=== PATIENT | female | born 1980 | race Two or more races ===

== ENCOUNTER 2018-11-29 21:36 | Inpatient (IN) | payer OTHER ==
[~2018-11-29] VITALS: Ht 170.2 cm; Wt 88.5 kg
[~2018-11-29 21:36] MED LIST: HYDR-2761 PO
[2018-11-29 22:02] LABS: BILIRUBIN,URINE NEGATIVE (NEG); CLARITY,URINE CLEAR; COLOR,URINE YELLOW; NITRITE,URINE NEGATIVE (NEG); PH,URINE 6.5; PROTEIN,URINE NEGATIVE (NEG-TRACE)
[2018-11-29 22:07] LABS: SQUAMOUS EPITHELIAL CELL,UR MOD /LPF
[2018-11-29 22:09] LABS: BACTERIA,URINE FEW /HPF (0-FEW); RBC,URINE TNTC /HPF (0-2)
--- NOTE | 2018-11-29 22:37 | PHYS DOC ---
Past Medical History Past Medical History: No Pertinent History Past Surgical History: No Surgical History Alcohol Use: None Drug Use: None Adult General Chief Complaint Chief Complaint: VAGINAL BLEEDING HPI HPI 38 y/o female presents to ER via POV for complaints of lower abdominal pain and vaginal bleeding. She reports pain is cramping in nature and symptoms started around 2:58 PM today. She reports she is approximately 16 weeks LMP June 2018 and she is uncertain as to how far along she is. She reports she went to [facility] 3 months ago and had a positive UCG test. She denies any further OB evaluation or care. She reports she is taking vitamins daily. 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 She denies any recent sexual intercourse. She denies recent falls/injury. She reports she has been having vaginal pressure denies passing clots or tissue. She reports bleeding has been light denies soaking through peripads. She denies nausea or vomiting, fever, or flulike illness. She reports she has had some dysuria past couple of days. She denies suicidal ideations reports she does have good support with her family. She reports the father for this and her are not together. She states she is 3 para 2 with this and has an 11 and 7-year-old daughters at home. Review of Systems Review of Systems Constitutional: Denies fever or chills [] Respiratory: Denies cough or shortness of breath [] Cardiovascular: No additional information not addressed in HPI [] GI: Denies nausea, vomiting, bloody stools or diarrhea. Reports lower abd pain : Reports dysuria and vaginal bleeding Musculoskeletal: Denies back pain Integument: Denies rash or skin lesions [] Neurologic: Denies headache, focal weakness or sensory changes. Denies dizziness Psych: Reports anxiety w/onset of sxs- denies SI All other systems were reviewed and found to be within normal limits, except as documented in this note. Allergies Allergies Allergies Coded Allergies Type Severity Reaction Last Updated Verified No Known Drug Allergies 06/28/16 No Physical Exam Physical Exam Constitutional: Well developed, well nourished, no acute distress, non-toxic appearance. Tearful during exam HENT: Normocephalic, atraumatic, oropharynx moist, no oral exudates, nose normal. [] Eyes: Pupils equal, conjunctiva normal, no discharge. [] Neck: Normal range of motion, no tenderness, supple, no stridor. [] Cardiovascular: Heart rate regular rhythm, no murmur [] Lungs & Thorax: Bilateral breath sounds clear to auscultation. Resp. equal/ nonlabored Abdomen: Bowel sounds normal, soft- diffuse tenderness across lower abd- no distention/rigidity, no masses, no pulsatile masses. [] Skin: Warm, dry, no erythema, no rash. [] Back: No tenderness, no CVA tenderness. [] Extremities: No tenderness, no cyanosis, no clubbing, ROM intact, no edema. [] Neurologic: Alert and oriented X 3, normal motor function, normal sensory function, no focal deficits noted. [] Psychologic: Affect normal, judgement normal, mood normal. [] Current Patient Data Vital Signs Vital Signs Date Time Temp Pulse Resp B/P (MAP) Pulse Ox O2 Delivery O2 Flow Rate FiO2 11/29/18 23:20 102 16 122/81 (95) 97 Room Air 11/29/18 22:00 98.9 98.9 Lab Values Laboratory Tests Test 11/29/18 21:41 11/29/18 21:51 11/29/18 23:25 Urine Collection Type Unknown Urine Color Yellow Urine Clarity Clear Urine pH 6.5 Urine Specific Lincoln 1.015 Urine Protein Negative mg/dL (NEG-TRACE) Urine Glucose (UA) Negative mg/dL (NEG) Urine Ketones (Stick) 15 mg/dL (NEG) Urine Blood Large (NEG) Urine Nitrite Negative (NEG) Urine Bilirubin Negative (NEG) Urine Urobilinogen Dipstick 2.0 mg/dL (0.2 mg/dL) Urine Leukocyte Esterase Moderate (NEG) Urine RBC Tntc /HPF (0-2) Urine WBC 5-10 /HPF (0-4) Urine Squamous Epithelial Cells Mod /LPF Urine Bacteria Few /HPF (0-FEW) Urine Mucus Slight /LPF Urine Opiates Screen Neg (NEG) Urine Methadone Screen Neg (NEG) Urine Barbiturates Neg (NEG) Urine Phencyclidine Screen Neg (NEG) Urine Amphetamine/Methamphetamine Neg (NEG) Urine Benzodiazepines Screen Neg (NEG) Urine Cocaine Screen Neg (NEG) Urine Cannabinoids Screen Neg (NEG) Urine Ethyl Alcohol Neg (NEG) POC Urine HCG, Qualitative Hcg positive (Negative) White Blood Count 9.3 x10^3/uL (4.0-11.0) Red Blood Count 4.74 x10^6/uL (3.50-5.40) Hemoglobin 11.8 g/dL (12.0-15.5) L Hematocrit 36.3 % (36.0-47.0) Mean Corpuscular Volume 77 fL (79-100) L Mean Corpuscular Hemoglobin 25 pg (25-35) Mean Corpuscular Hemoglobin Concent 32 g/dL (31-37) Red Cell Distribution Width 16.9 % (11.5-14.5) H Platelet Count 280 x10^3/uL (140-400) Neutrophils (%) (Auto) 74 % (31-73) H Lymphocytes (%) (Auto) 17 % (24-48) L Monocytes (%) (Auto) 6 % (0-9) Eosinophils (%) (Auto) 2 % (0-3) Basophils (%) (Auto) 1 % (0-3) Neutrophils # (Auto) 6.9 x10^3uL (1.8-7.7) Lymphocytes # (Auto) 1.6 x10^3/uL (1.0-4.8) Monocytes # (Auto) 0.6 x10^3/uL (0.0-1.1) Eosinophils # (Auto) 0.2 x10^3/uL (0.0-0.7) Basophils # (Auto) 0.1 x10^3/uL (0.0-0.2) Maternal Serum HCG Beta Subunit 336 mIU/mL (0-5) H Sodium Level 136 mmol/L (136-145) Potassium Level 3.1 mmol/L (3.5-5.1) L Chloride Level 101 mmol/L (98-107) Carbon Dioxide Level 22 mmol/L (21-32) Anion Gap 13 (6-14) Blood Urea Nitrogen 7 mg/dL (7-20) Creatinine 0.6 mg/dL (0.6-1.0) Estimated GFR (Cockcroft-Gault) 110.7 BUN/Creatinine Ratio 12 (6-20) Glucose Level 98 mg/dL (70-99) Calcium Level 9.0 mg/dL (8.5-10.1) Total Bilirubin 0.3 mg/dL (0.2-1.0) Aspartate Amino Transferase (AST) 19 U/L (15-37) Alanine Aminotransferase (ALT) 23 U/L (14-59) Alkaline Phosphatase 104 U/L (46-116) Total Protein 7.3 g/dL (6.4-8.2) Albumin 3.1 g/dL (3.4-5.0) L Albumin/Globulin Ratio 0.7 (1.0-1.7) L Laboratory Tests 11/29/18 23:25 Laboratory Tests 11/29/18 23:25 EKG EKG [] Radiology/Procedures Radiology/Procedures [] Course & Med Decision Making Course & Med Decision Making Pertinent Labs and Imaging studies reviewed. (See chart for details) RN reported she attempted to obtain heart tones but was unsuccessful. 2335: Pelvic exam complete with RN at bedside- speculum inserted into vaginal vault and when opened visualized what appeared to be amniotic sac without obvious presentation. Sm. amt of bright red vaginal bleeding. With exam there was presentation of fetus/amniotic sac outside vaginal vault when speculum was removed. After exam pt denied abd pain/cramping. She tolerated exam well. She remains tearful during exam- her sister remained at bedside and provided pt with emotional support. Discussed pt's case, US results and exam with Dr. Muñoz who recommended call be placed to OB to discuss pt's case. 2340: Spoke with Dr. Linn, OB pensions retirement plan specialist and discussed patient's case and exam. Per him Will admit patient to his services for further care and monitoring. This was discussed with patient she is agreeable with admitting plan. She remains tearful although having no uncontrollable behavior. Pt's sister has been with pt and providing supportive care. Pt has had intermittent lower abd cramping with bright red vaginal bleeding- no passing of clots/tissue. She was offered pain medication while in the ER but preferred no meds as her pain was tolerable. She was started on IV flds while in the ER. VS have been stable. There was a delay with getting labs- some were still pending at time of admission. Pt's H&H was stable at 11.8/36.3. Her HCG quant was 336. Type and RH pending. Dragon Disclaimer Dragon Disclaimer This electronic medical record was generated, in whole or in part, using a voice recognition dictation system. Departure Departure Impression: Primary Impression: Spontaneous Disposition: ADMITTED INPATIENT Admitting Physician: Other (Dr. Linn) Condition: STABLE Referrals: NO PCP (PCP) LUCHO JOHNSON APRN Nov 29, 2018 22:37
--- NOTE | 2018-11-29 23:42 | RAD ---
INDICATION: spotting today COMPARISON: None. TECHNIQUE: Grayscale and color ultrasound images uterus and adnexa. Transabdominal and transvaginal images obtained. FINDINGS: Intrauterine is identified however no heartbeat is seen. The legs are within the cervix to upper vaginal region. The maternal ovaries are not seen. The ultrasound estimated gestational age is 15 weeks and 0 days. Fluid is seen within the cervical region and vaginal region surrounding the fetus which could be secondary to the gestational sac extending into this region. IMPRESSION: 1. No heartbeat is seen with the legs extending into the cervical and upper vaginal region concerning for in progress. The amniotic sac appears to be extending through the cervix and into the upper vaginal region as well. Electronically signed by: Efren Tirado MD (11/29/2018 11:39 PM) [facility]
[2018-11-29 23:54] LABS: BASO # 0.1 x10^3/uL (0.0-0.2); BASO % 1 % (0-3); EOS # 0.2 x10^3/uL (0.0-0.7); EOS % 2 % (0-3); HEMATOCRIT 36.3 % (36.0-47.0); HEMOGLOBIN 11.8 g/dL (12.0-15.5); LYMPH # 1.6 x10^3/uL (1.0-4.8); LYMPH % 17 % (24-48); MEAN CORPUSCULAR HEMOGLOBIN 25 pg (25-35); MEAN CORPUSCULAR HGB CONC 32 g/dL (31-37); MEAN CORPUSCULAR VOLUME 77 fL (79-100); MONO # 0.6 x10^3/uL (0.0-1.1); MONO % 6 % (0-9); NEUT # 6.9 x10^3uL (1.8-7.7); NEUT % 74 % (31-73); PLATELET COUNT 280 x10^3/uL (140-400); RED BLOOD COUNT 4.74 x10^6/uL (3.50-5.40); RED CELL DISTRIBUTION WIDTH 16.9 % (11.5-14.5); WHITE BLOOD COUNT 9.3 x10^3/uL (4.0-11.0)
[2018-11-30 00:03] LABS: CREATININE 0.6 mg/dL (0.6-1.0); GFR 110.7; POTASSIUM 3.1 mmol/L (3.5-5.1)
[2018-11-30 00:10] LABS: ALBUMIN 3.1 g/dL (3.4-5.0); ALBUMIN/GLOBULIN RATIO 0.7 (1.0-1.7); TOTAL BILIRUBIN 0.3 mg/dL (0.2-1.0); TOTAL PROTEIN 7.3 g/dL (6.4-8.2)
[2018-11-30 00:29] VITALS: BP 135/71
[2018-11-30] MEDS ORDERED: fentaNYL PF VIAL 100 MCG/2 ML VIAL IV PRN ×2 (00:30→00:45)
[2018-11-30] MEDS ORDERED: IV NORMAL SALINE 1000ML BAG 1,000 ML IV SCH (00:30)
[2018-11-30] MEDS ORDERED: ONDANSETRON PF 4 MG/2 ML VIAL. IV PRN ×2 (00:30→00:45)
[2018-11-30] MEDS ORDERED: ZOLPIDEM 5 MG TABLET. PO PRN (00:45)
[2018-11-30] MEDS ORDERED: BUTORPHANOL 2 MG/ML VIAL. IV PRN ×2 (00:45)
[2018-11-30] MEDS ORDERED: IBUPROFEN 400 MG TABLET. PO PRN ×2 (00:45→02:00)
[2018-11-30] MEDS ORDERED: 0.9 % SODIUM CHLORIDE 10 ML DISP.SYRIN. IV PRN ×2 (00:45→02:00)
[2018-11-30] MEDS ORDERED: MAG HYDROX/ALUMINUM HYD/SIMETH 30 ML ORAL.SUSP PO PRN ×2 (00:45→02:00)
[2018-11-30] MEDS ORDERED: OXYTOCIN 30 UNIT/500 ML PREMIX 500 ML IV PRN (00:45)
[2018-11-30] MEDS ORDERED: IV RINGERS,LACTATED 1000ML 1,000 ML IV SCH (01:00)
[2018-11-30 01:06] LABS: BARBITURATES NEG (NEG); BENZODIAZEPINES NEG (NEG); CANNABINOIDS NEG (NEG); COCAINE NEG (NEG); METHADONE NEG (NEG); OPIATES NEG (NEG); PHENCYCLIDINE NEG (NEG)
[2018-11-30] MEDS: ceFAZolin SODIUM 1 GM in IV DEXTROSE 5% 50 ML IV SCH ×2 (01:07→07:44)
[2018-11-30 01:10] LABS: AMPHETAMINE/METHAMPHETAMINE NEG (NEG)
[2018-11-30] MEDS ORDERED: ACETAMINOPHEN 325 MG TABLET. PO PRN (02:00)
[2018-11-30] MEDS ORDERED: MAGNESIUM HYDROXIDE 2,400 MG/30 ML ORAL.SUSP. PO PRN (02:00)
[2018-11-30] MEDS ORDERED: SIMETHICONE 80 MG TAB.CHEW PO PRN (02:00)
[2018-11-30] MEDS ORDERED: diphenhydrAMINE HCL 25 MG CAPSULE PO PRN (02:00)
[2018-11-30] MEDS ORDERED: DOCUSATE SODIUM 100 MG CAPSULE. PO PRN (02:00)
--- NOTE | 2018-11-30 02:35 | NUR ---
the father of fetus getting progressively more agitated as night goes on. FOB very teary and yelling out. states he is very depressed, wants some psychiatric help, definate smell of alcohol coming from his breath. We have had security up to unit twice due to FOB behavior. Fob mood swinging from hysterical tears to very dark threatening looks and demeanor towards patient and nursing staff. He wants to know if fetus is a boy or girl?, if " we (the staff) can tell if fetus was "intentionally killed or it was an accident" " this has happened to me with past women " none of my babies have survived" states he has been having dreams that his baby was dying this week. he wants to take home with him.
--- NOTE | 2018-12-05 09:07 | PATHOLOGY ---
[facility] Accession Number: [id number] . 01 Material submitted: . product of conception - PRODUCTS OF CONCEPTION . 01 Clinical history: . IUFD, SAB. Please see delivery summary. . 02 Diagnosis: Immature placenta of an estimated 15 weeks gestation with attached membranes and umbilical cord and attached segment of decidual tissue, products of conception: - thrombotic vasculopathy. - Subamniotic pigmented macrophages. - Segments of decidual tissue showing focal necrosis, hemorrhage, and acute inflammation. (JPM:ingrid; 12/04/2018) MBR/12/05/2018 . 02 Comment: There is no evidence of an acute chorioamnionitis. There are no infarcts. (JPM:ingrid; 12/04/2018) . 02 Electronically signed: . Ashish Wallace MD, Pathologist NPI- [id number] . 01 Gross description: . Received in formalin labeled "Sauza, Yenni". The container is not labeled with the specimen site. Per the requisition, the specimen site is "products of conception. The specimen is a doewll placenta with attached membranes and umbilical cord. The placental disc measures 8.5 x 8.2 x 2.7 cm. The membranes are transparent and thin with the site of membrane rupture 5.3 cm from the placental margin. The membranes have circum-marginate insertion. The umbilical cord measures 23.2 cm in length, 0.3 cm in diameter and inserts centrally, 2.6 cm from the closest placental margin. There are no true knots in the umbilical cord. The number of umbilical cord vessels cannot be grossly determined. Attached to the placental disc is a 12.0 x 10.5 x 1.5 cm ragged portion of greene-brown decidua. The membranes do not surround the portion of decidua. The total placental weight including attached decidua is 140 grams. The surface is green-richard with minimal subchorionic fibrin and mucinous green fluid is present between the amnion and chorion on the aspect. Amnion nodosum is not present. Cysts are not present. The maternal surface of the main placental disc has grossly intact cotyledons and no basal hemorrhage. The completeness of the attached decidua cannot be determined, and is ragged in nature. Sectioning through the placental disc reveals multiple greene-white possible infarcts comprising 5% of the placental tissue and ranging from 0.6-1.5 cm in greatest dimension. Sections are submitted as follows: . A1 proximal and distal umbilical cord A2 membranes, rolled A3 school admissions representative peripheral placenta A4 school admissions representative central placenta A5-A6 school admissions representative attached decidua ([facility]; 11/30/2018) SYC/SYC . 02 Pathologist provided ICD-10: O43.891 . 02 CPT . 726491 Specimen Comment: A courtesy copy of this report has been sent to Specimen Comment: [phone]. Specimen Comment: Report sent to Performed at: 01 [facility] [address], [place] [id number] MD Dell Sy MD Phone: [phone] Performed at: 02 [facility] [address] [place], [place] [id number] MD Ashish Wallace MD Phone: [phone]
--- NOTE | 2018-12-28 11:46 | PDOC1 ---
OB - History Hx of Present Care: None Ultrasounds: Abnormal US findings Obstetrical Complications: Other (PTL) Medical Complications: None Past Family/Social History * Past Medical, Surgical, Family and Obstetric Histories reviewed from chart. Blood Type: Unknown Rubella: Immune RPR/VDRL: Negative GBS Status: Unknown OB - Chief Complaint & HPI Date of Admission: Date of Admission: Nov 29, 2018 at 23:40 Chief Complaint/History : 3 Para: 2 EGA: 15 wks Reason for admission: IUFD Admission Nurse Assessment Rev: Yes OB - Admission Exam Physical Exam HEENT: Normal, Nasal Mucosa Normal, Oropharynx Normal, Moist Membranes, Fontanelles Normal Heart: Regular Rate Lungs: Clear, Equal Abdomen: Gravid Extremities: Normal Pulses, No tenderness or swelling Reflexes: Normal Cervical Dilatation: 10cm Effacement: 100% Station: Other (SAB) Membranes: Ruptured Assessment/Plan Assessment/Plan 15 week SAB IV abs and monitor SHANNON BAGLEY MD December 28, 2018 11:46
== END 2018-11-30 10:30 | disposition home or self-care (01) | DRG 779 ==
LOC: ER 21:36 → 3 NORTH 23:40 → 3 SO LND 11-30 00:35
PROVIDERS: ADMIT Specialist; ATTEND Specialist
PROC: 10D17Z9 Manual Extraction of Products of Conception, Retained, Via Natural or Artificial Opening (ICD-10-PCS; principal; 2018-11-29)
DX: O03.9 Complete or unspecified spontaneous abortion without complication (principal); Z3A.16 16 weeks gestation of pregnancy
CPT/HCPCS: 36415; 76805; 76817; 80053; 80307; 81001; 81025; 84702; 85025; 86900; 86901; 87086; 88305; J0690; J2590; J7120; 99285-25